=== PATIENT | female | born 1940 | race Caucasian/White ===

== ENCOUNTER 2016-10-29 07:30 | Inpatient (IN) | payer MEDICARE, BC ==
[2016-10-15 09:32] VITALS: BMI 30.1
[~2016-10-29 07:30] MED LIST: ACETAMINOPHEN TAB 500 MG TAB PO ONE; DEXAMETHASONE SOD PHOSPHATE 10 MG/ML 1 ML VIAL IV ONE; HYDROmorphone 1 MG/ML 1 ML SYRINGE IVP PRN; LACTATED RINGERS 1,000 ML IV SCH; MELOXICAM 7.5 MG TAB PO ONE; ONDANSETRON 4 MG/2 ML VIAL IVP ONE; TRANEXAMIC ACID 1,000 MG in SODIUM CHLORIDE 0.9% 100 ML IVPB ONE
[2016-10-29] MEDS ORDERED: LACTATED RINGERS 1,000 ML BAG IV ONE (12:43)
[2016-10-29] MEDS ORDERED: SODIUM CHLORIDE 0.9% 100 ML BAG ONE (12:43)
[2016-10-29] MEDS ORDERED: HEPARIN SODIUM,PORCINE 10,000 UNIT/ML 1 ML VIAL ONE (12:43)
[2016-10-29] MEDS ORDERED: CLINDAMYCIN 150 MG/ML 6 ML VIAL ONE (12:43)
[2016-10-29] MEDS ORDERED: CLINDAMYCIN 150 MG/ML 4 ML VIAL ONE (12:43)
[2016-10-29] MEDS ORDERED: TRANEXAMIC ACID 1,000 MG/10 ML VIAL ONE (12:43)
[2016-10-29] MEDS ORDERED: MIDAZOLAM 2 MG/2 ML VIAL ONE (12:43)
[2016-10-29] MEDS ORDERED: diphenhydrAMINE 50 MG/ML 1 ML VIAL ONE (12:43)
[2016-10-29] MEDS ORDERED: SODIUM CHLORIDE 0.9% IRRIG 1,000 ML BTL IRRIGATION ONE (12:43)
[2016-10-29] MEDS ORDERED: SODIUM CHLORIDE 0.9% IRRIG 3,000 ML BAG IRRIGATION ONE (12:43)
[2016-10-29] MEDS ORDERED: ePHEDrine 50 MG/ML 1 ML AMP ONE (12:43)
[2016-10-29] MEDS ORDERED: PHENYLEPHRINE-0.9% NACL SYG 1 MG/10 ML SYRINGE ONE (12:43)
[2016-10-29] MEDS: CLINDAMYCIN 1,800 MG in SODIUM CHLORIDE 0.9% IRRIGATIO 3,000 ML IRRIGATION ONE ×2 (12:54→18:21)
[2016-10-29] MEDS: CLINDAMYCIN 900 MG in DEXTROSE 5% IN WATER 50 ML IVPB ONE ×4 (12:54→18:20)
[2016-10-29] MEDS: ROPIVACAINE 246.25 MG, EPINEPHrine 0.5 MG, KETOROLAC 30 MG, cloNIDine HCL/PF 80 MCG, WA... MISCELLANE ONE ×10 (13:20→14:55)
[2016-10-29] MEDS: LACTATED RINGERS 1,000 ML IV ONE ×4 (13:54→18:22)
--- NOTE | 2016-10-29 15:47 | P.OP ---
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 Anesthesia: spinal Surgeon: Nakul Rice House Decorator #1: Marlena Hill Estimated Blood Loss (ml): 500 (203 mL returned with Cell Saver) Pathology: none sent Condition: stable Disposition: PACU Indications for Procedure: This is a 75-year-old female has had a prior right total hip arthroplasty in the and [place], [place]. She is done well until recently when she began having more pain in her right hip thigh groin and leg. 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 After discussion of the surgical and nonsurgical treatment options with her at length , she wishes to proceed with a revision of a right total hip arthroplasty. She is aware the potential complications including, but not limited to, infection, bleeding, dislocation, leg length discrepancy, nerve injury, and continued pain. Informed consent was obtained. Operative Findings: The operative findings showed loosening of the femoral component, significant polyethylene wear, and loosening of the acetabular component. Description of Procedure: Patient was seen and evaluated in the preoperative area, consent was reviewed, and the surgical site was marked with a skin marker. Patient was then brought to the operating room and given prophylactic antibiotics intravenously. 1 g of Tranexamic acid was also given. A spinal anesthetic was administered by the anesthesia department. A Guevara catheter was then placed by the nursing staff. The patient was then placed on the operative table and placed in the lateral decubitus position with the bony prominences well-padded. The hip area was then prepped and draped in usual sterile fashion. A universal timeout was then performed, which confirmed the patient's name, surgical site, ALLERGIES, and procedure being performed. Next the incision site was located in the lateral aspect of the hip, centered at the tip of the greater trochanter, with part of the prior incision utilized, with the scar being excised.. The skin and subcutaneous tissues were sharply incised. Incision was carefully dissected down to the fascia. This fascia was then incised in line with the incision. The fascial planes were reestablished. Next , a Charnley retractor was then placed in the abductors were identified. The anterior one third of the abductors was released off the trochanter and one large sleeve. The anterior hip capsule was then exposed. The capsule was then opened. The proximal femur was then visualized. The hip was then gently dislocated. The femoral head was then removed from the femoral stem without incident. Our tissue was then removed from about the proximal femur, so that the femoral component was readily visualized. A saw was then used to remove trochanteric bone in order for the femoral component to clear the trochanter while being removed. Next, curved osteotome was then used to gently remove the femoral component without difficulty. Femoral component was grossly loose. Met was then cleared from the femoral canal. Attention was then directed to the acetabulum. The acetabulum was exposed and any remaining scar was excised. The acetabular liner was removed with an osteotome and a mallet without difficulty. Next, the 2 acetabular screws were then removed with appropriate screwdriver. Next, the acetabulum and bone interface was disrupted using curved osteotomes, and the acetabulum was easily removed with minimal bone loss. The acetabulum was then evaluated and found to have no significant areas of bone loss. Sequential reaming of the acetabulum was performed to a bed of bleeding cancellus bone. When the appropriate size was reached, a trial was then placed. The trial was then removed. Then the final implant was impacted at 20 of anteversion and 40 of abduction, and fully seated in the acetabulum. 3 screws were then placed in the acetabulum. Next, the trial liner was then impacted. Attention was then directed to the femur. The proximal was reexposed. Retractors were then placed. A box osteotome was used to lateralize the proximal femur. A hand marker was then used to locate the femoral canal. Sequential reaming was then performed with appropriate size which afforded excellent fixation in the femur. A trial stem was then placed to the appropriate depth. Adapter was then placed in the proximal femur was reamed to accommodate a size B standard cone proximal body. The trial stem was then removed, the trial stem was then assembled and re-impacted into the femur at the appropriate anteversion and appropriate depth. Trial head was then placed along with the dual mobility insert, and the hip was reduced. The leg lengths were checked and found to be equal. Hip was then taken through full range of motion, was stable throughout. Next, the hip was gently dislocated, and the trials were removed. Final implants were then impacted and the hip was again reduced. The leg lengths were again examined and found to be equal. The hip was also taken through range of motion, and found to be stable. It was noted that there was a fracture of the greater trochanter which occurred during the reaming and trialing process. A cable wire was then placed across the fracture site, which afforded excellent fixation of the fracture. The hip was then copiously irrigated with antibiotic solution with pulsatile lavage. The hip was then irrigated with Irrisept solution. The soft tissues were then injected with ropivacaine solution. A second dose of 1 g of Tranexamic acid was given. The abductors were then repaired with #5 Ethibond suture with drill holes to the bone. The fascia was closed with #2 strata fix suture. The subcutaneous tissue was closed with 3-0 Vicryl. The subcuticular tissue was closed with 30 strata fix suture. The skin was then closed with Dermabond tape. The patient was then transferred to the recovery room in stable condition. The Asst. Marlena Hill was required due to the complexity of surgery, and the need for skilled surgical consultant for positioning, draping, exposure, retraction, and closure of the wound.and closure of the wound.
[2016-10-29] MEDS ORDERED: MAGNESIUM HYDROXIDE 2,400 MG/10 ML CUP PO PRN (15:53)
[2016-10-29] MEDS ORDERED: NALOXONE 0.4 MG/ML 1 ML VIAL IV PRN (15:53)
[2016-10-29] MEDS ORDERED: ONDANSETRON 4 MG/2 ML VIAL IVP PRN (15:53)
[2016-10-29] MEDS ORDERED: hydrOXYzine PAMOATE 25 MG CAP PO PRN (15:53)
[2016-10-29] MEDS ORDERED: DIAZEPAM 5 MG TAB PO PRN ×2 (15:53)
[2016-10-29] MEDS ORDERED: HYDROmorphone 1 MG/ML 1 ML SYRINGE IVP PRN ×3 (15:53)
[2016-10-29] MEDS ORDERED: HYDROcodone/APAP 5-325MG 1 EACH TAB PO PRN (15:53)
--- NOTE | 2016-10-29 16:13 | XR ---
EXAMINATION TYPE: XR Hip Limited RT DATE OF EXAM: 10/29/2016 4:06 PM COMPARISON: NONE HISTORY: Post hip surgery TECHNIQUE: Single AP view right hip FINDINGS: Right hip prosthesis is present. A cerclage wire is present. Acute fractures are not identi fied. IMPRESSION: No acute fractures post hip replacement.
[2016-10-29] MEDS: CLINDAMYCIN 900 MG in DEXTROSE 5% IN WATER 50 ML IVPB SCH ×2 (17:26)
[2016-10-29] MEDS: SODIUM CHLORIDE 0.9% 1,000 ML IV SCH (17:27)
[2016-10-29] MEDS: HYDROcodone/APAP 5-325MG 1 EACH TAB PO PRN (18:45)
[2016-10-29] MEDS: ASPIRIN 325 MG TAB PO SCH (20:53)
[2016-10-29] MEDS: SENNOSIDES-DOCUSATE SODIUM 1 EACH TAB PO SCH (20:54)
[2016-10-29] MEDS: amLODIPine 10 MG TAB PO SCH (23:41)
[2016-10-30] MEDS: CLINDAMYCIN 900 MG in DEXTROSE 5% IN WATER 50 ML IVPB SCH ×2 (06:18)
[2016-10-30] MEDS: SODIUM CHLORIDE 0.9% 1,000 ML IV SCH (07:29)
[2016-10-30] MEDS: HYDROcodone/APAP 5-325MG 1 EACH TAB PO PRN ×3 (07:29→17:41)
[2016-10-30] MEDS ORDERED: PANTOPRAZOLE 40 MG TABLET PO SCH (07:30)
[2016-10-30 07:39] LABS: Basophils % (A) 0 %; CH 28.1; Eosinophils % (A) 0 %; HDW 2.45; Luc # (Auto) 0.07; Luc % (Auto) 1; Lymphocytes # (A) 1.6 k/uL (1.0-4.8); Lymphocytes % (A) 16 %; MCH 28.5 pg (25.0-35.0); MCHC 32.3 g/dL (31.0-37.0); MCV 88.4 fL (80.0-100.0); Monocytes # (A) 0.5 k/uL (0-1.0); Monocytes % (A) 6 %; Neutrophils # (A) 7.7 k/uL (1.3-7.7); Neutrophils % (A) 77 %; RBC 3.16 m/uL (3.80-5.40); WBC 9.9 k/uL (3.8-10.6); WBC (Perox) 9.82
[2016-10-30] MEDS: PANTOPRAZOLE SODIUM 40 MG GRANULE PKT PO SCH (08:34)
[2016-10-30] MEDS: ATORVASTATIN 80 MG TAB PO SCH (08:34)
[2016-10-30] MEDS: FENOFIBRATE 160 MG TAB PO SCH (08:34)
[2016-10-30] MEDS: CHOLECALCIFEROL 1,000 UNIT TAB PO SCH (08:34)
[2016-10-30] MEDS: ASPIRIN 325 MG TAB PO SCH ×2 (08:34→20:16)
[2016-10-30] MEDS: MELOXICAM 7.5 MG TAB PO SCH (08:34)
--- NOTE | 2016-10-30 08:47 | CONS ---
DATE OF CONSULTATION: DATE OF SERVICE: 10/29/2016 REASON FOR CONSULTATION: Advice regarding hypertension, hyperlipidemia requested by Dr. Rice. HISTORY OF PRESENT ILLNESS: This 75-year-old woman with a past medical history of hypertension, hyperlipidemia, DJD, history of GERD, history of hernia surgery, hysterectomy being followed by Dr. Baca in the outpatient setting was admitted after revision total hip joint arthroplasty on the right. No chest pain or palpitations. No fever. Patient is slightly sedated. No hematochezia or melena. PAST MEDICAL HISTORY: History of GERD, hypertension, hyperlipidemia, DJD. Patient uses a cane. Medications are: 1. Norvasc 10 mg q.h.s. 2. Zoloft 50 mg daily. 3. Metamucil 6 grams p.o. daily. 4. Zegerid 20 mg 1 p.o. daily. 5. Niacin 400 mg daily. 6. Multivitamin 1 p.o. daily. 7. Glucosamine 1 tablet p.o. daily. 8. Fenofibrate 160 mg p.o. daily. 9. Vitamin D3, 1000 units daily. 10. Lipitor 80 mg daily. 11. Aspirin 81 mg. 12. Fosamax 70 mg q.7 days. Allergies are PENICILLIN and SULFA. FAMILY HISTORY: History of cancer in the family. SOCIAL HISTORY: Previous history of smoking. No history of alcohol intake. REVIEW OF SYSTEMS: ENT: No diminished hearing or vision. CARDIOVASCULAR SYSTEM: No angina or palpitations. RESPIRATORY SYSTEM: No cough. GI: No nausea. : No dysuria. NERVOUS SYSTEM: No numbness or weakness. ALLERGY/IMMUNOLOGY: No asthma or hayfever. MUSCULOSKELETAL: As mentioned earlier. HEMATOLOGY/ONCOLOGY: No history of anemia. ENDOCRINE: No history of diabetes or hypothyroidism. CONSTITUTIONAL: As mentioned earlier. DERMATOLOGY: Negative. RHEUMATOLOGY: Negative. PSYCHIATRY: As mentioned earlier. PHYSICAL EXAMINATION: The patient is alert and oriented x3. Pulse is 90, blood pressure 109/65, respirations 16, temperature 97.8, pulse ox 98% on room air. HEENT: Conjunctivae normal. Oral mucosa moist. NECK: No jugular venous distention. No carotid bruit. No lymph node enlargement. No thyroid enlargement. CARDIOVASCULAR: S1 and S2, muffled. No S3, no S4. RESPIRATORY: Breath sounds diminished at the bases. No rhonchi, no crackles. ABDOMEN: Soft, nontender. No mass palpable. No hepatosplenomegaly. LEGS: No edema, no swelling. Status post right hip surgery. NERVOUS SYSTEM: Higher function as mentioned. Moves all 4 limbs. No focal motor deficits. LYMPHATICS: No lymphadenopathy of neck, axillae or groin. SKIN: No ulcers, rashes or bleeding. LABS: At this time shows that the labs are not available. The labs done preop the platelets are 482. Otherwise chemistry shows glucose 112, AST 37. ASSESSMENT: 1. Status post revision right total hip joint arthroplasty. 2. History of hypertension. 3. History of hyperlipidemia. 4. History of degenerative joint disease. 5. History of gastroesophageal reflux disease. 6. History of tonsillectomy. 7. History of hysterectomy. 8. History of hernia repair. 9. Remote history of nicotine dependence. 10. FULL CODE. RECOMMENDATIONS AND DISCUSSION: This 75-year-old woman who presented after surgery. At this time, I would recommend to continue current medications. Continue symptomatic treatment. Recommend to resume the home medications, Monitor blood closely. DVT prophylaxis. Incentive spirometry. Will follow the patient closely with you. Otherwise, patient will be asked to follow with Dr. Baca closely after discharge. Thank you Dr. Rice for letting us participate in the care of this patient. JOSEFINA
--- NOTE | 2016-10-30 09:00 | P.PN ---
Subjective Principal diagnosis: Status post right total hip arthroplasty revision This is a pleasant 75-year-old female who is status post right total hip arthroplasty revision. Today's postoperative day #1. The patient is seen and evaluated at bedside with Dr. Nakul Rice. Her pain is recently controlled this time. She has no new complaints at this time. Objective - Vital Signs Vital signs: Vital Signs Temp 98 F 10/30/16 07:33 Pulse 70 10/30/16 07:33 Resp 17 10/30/16 07:33 BP 105/57 10/30/16 07:33 Pulse Ox 96 10/30/16 07:33 Intake & Output 10/29/16 10/30/16 10/30/16 18:59 06:59 18:59 Intake Total 5948 180 Output Total 600 400 Balance 5348 -400 180 Weight 77.111 kg Intake: IV 5468 Oral 480 180 Output: Urine 100 400 Estimated Blood Loss 500 Other: Voiding Method Indwelling Catheter - Exam The patient does not appear in acute distress. Alert and orientated 3. Dressing is clean dry and intact. Incision appears fine with no erythema or active drainage. Calf is soft and nontender. Good foot and ankle motion without difficulty. Sensation and circulatory status is intact. - Labs CBC & Chem 7: 10/30/16 07:02 Labs: Abnormal Lab Results - Last 24 Hours (Table) 10/30/16 Range/Units 07:02 RBC 3.16 L (3.80-5.40) m/uL Hgb 9.0 L D (11.4-16.0) gm/dL Hct 28.0 L (34.0-46.0) % Assessment and Plan (1) Status post revision of total hip replacement Status: Acute (2) Hardware failure Status: Acute Plan: Continue with routine postoperative care. Physical therapy and anticoagulation. Continue pain control. Appreciate input from medicine. Plan for transfer to [facility] likely on Friday.
[2016-10-30] MEDS: SERTRALINE 50 MG TAB PO SCH (12:15)
[2016-10-30] MEDS: amLODIPine 10 MG TAB PO SCH (20:16)
[2016-10-30] MEDS: SENNOSIDES-DOCUSATE SODIUM 1 EACH TAB PO SCH (20:18)
[2016-10-31] MEDS: HYDROcodone/APAP 5-325MG 1 EACH TAB PO PRN ×4 (01:26→21:16)
[2016-10-31 07:21] LABS: Basophils # (A) 0.1 k/uL (0-0.2); Basophils % (A) 1 %; CH 28.6; CHCM 32.6; Eosinophils # (A) 0.2 k/uL (0-0.7); Eosinophils % (A) 3 %; HDW 2.49; HGB 9.1 gm/dL (11.4-16.0); Luc # (Auto) 0.07; Luc % (Auto) 1; Lymphocytes # (A) 1.1 k/uL (1.0-4.8); Lymphocytes % (A) 16 %; MCH 27.8 pg (25.0-35.0); MCHC 31.5 g/dL (31.0-37.0); MCV 88.3 fL (80.0-100.0); Mean Platelet Volume 7.3; Monocytes # (A) 0.5 k/uL (0-1.0); Monocytes % (A) 7 %; Neutrophils # (A) 5.1 k/uL (1.3-7.7); Neutrophils % (A) 73 %; RBC 3.28 m/uL (3.80-5.40); RDW 14.5 % (11.5-15.5); WBC (Perox) 7.53
[2016-10-31] MEDS: MELOXICAM 7.5 MG TAB PO SCH (07:22)
[2016-10-31] MEDS: FENOFIBRATE 160 MG TAB PO SCH (07:23)
[2016-10-31] MEDS: ATORVASTATIN 80 MG TAB PO SCH (07:23)
[2016-10-31] MEDS: CHOLECALCIFEROL 1,000 UNIT TAB PO SCH (07:23)
[2016-10-31] MEDS: SERTRALINE 50 MG TAB PO SCH (07:23)
[2016-10-31] MEDS: ASPIRIN 325 MG TAB PO SCH ×2 (07:23→21:13)
[2016-10-31] MEDS: PANTOPRAZOLE SODIUM 40 MG GRANULE PKT PO SCH (07:24)
--- NOTE | 2016-10-31 08:32 | PN ---
DATE OF SERVICE: 10/30/2016 This 75-year-old woman who was admitted after right total hip arthroplasty is improving significantly. No chest pain or palpitations. No fever. On exam, alert and oriented x3. Pulse is 72, blood pressure 105/58, respirations 16, temperature 98 degrees, pulse ox 96% on room air. HEENT: Conjunctivae normal. NECK: No jugular venous distention. CARDIOVASCULAR: S1 and S2, muffled. RESPIRATORY: Breath sounds diminished at the bases. No rhonchi, no crackles. ABDOMEN: Soft, nontender. LEGS: Status post surgery. NERVOUS SYSTEM: No focal deficits. LABS: Hemoglobin 9. ASSESSMENT: 1. Status post revision right total hip joint arthroplasty. 2. Anemia, postoperative as expected, dilutional. 3. Hypertension. 4. Hyperlipidemia. 5. History of degenerative joint disease. 6. History of gastroesophageal reflux disease. 7. History of tonsillectomy. 8. History of hysterectomy. 9. History of hernia repair. 10. Remote history of nicotine dependence. 11. FULL CODE. RECOMMENDATIONS AND DISCUSSION: Recommend to continue current medications. Continue with monitoring and symptomatic treatment. Otherwise, DVT prophylaxis. I would recommend repeat CBC also. Otherwise, monitor closely. Further recommendations to follow.
--- NOTE | 2016-10-31 08:47 | P.PN ---
Subjective Principal diagnosis: Revision right total hip arthroplasty This is a 75 year-old female post revision right total hip arthroplasty. This is post-op day 2. The patient was evaluated at the bedside today. The patient denies nausea, vomiting, abdominal pain, shortness of breath, and chest pain this morning. She states her pain is controlled at this time. The patient states she has ambulated to the bathroom. Objective - Vital Signs Vital signs: Vital Signs Temp 98.3 F 10/31/16 07:45 Pulse 92 10/31/16 07:45 Resp 16 10/31/16 07:45 BP 117/58 10/31/16 07:45 Pulse Ox 96 10/31/16 07:45 Intake & Output 10/30/16 10/31/16 10/31/16 18:59 06:59 18:59 Intake Total 1020 1000 Output Total 1300 Balance -280 1000 Intake: Oral 1020 1000 Output: Urine 1300 Uretheral (Guevara) 1300 Other: Voiding Method Toilet # Voids 2 - Exam The patient does not appear in acute distress. Alert and orientated x3. Dressing is clean dry and intact. Incision appears fine with no erythema or active drainage. Calf is soft and nontender. Good foot and ankle motion without difficulty. Sensation and circulatory status is intact. - Labs CBC & Chem 7: 10/31/16 06:31 Labs: Abnormal Lab Results - Last 24 Hours (Table) 10/31/16 Range/Units 06:31 RBC 3.28 L (3.80-5.40) m/uL Hgb 9.1 L (11.4-16.0) gm/dL Hct 29.0 L (34.0-46.0) % Assessment and Plan (1) Hardware failure Status: Acute (2) Status post revision of total hip replacement Status: Acute Plan: 1. Continue pain control 2. Anticoagulation with Aspirin 3. Continue physical therapy and ambulation 4. Anticipate discharge to skilled rehab tomorrow
--- NOTE | 2016-10-31 15:29 | PN ---
DATE OF SERVICE: 10/31/2016 This is a 75-year-old woman who was admitted after right total knee arthroplasty, is improving significantly. No chest pain or palpitation. No fever. On exam, alert and oriented x3. Pulse is 92, blood pressure 117/58, respirations 16, temperature is 98.1, pulse ox 97% on room air. HEENT: Conjunctivae normal. NECK: No jugular venous distension. CARDIOVASCULAR SYSTEM: S1, S2, muffled. RESPIRATORY: Breath sounds diminished at the bases. No rhonchi, no crackles. Abdomen is soft, nontender. EXTREMITIES: Legs status post right knee arthroplasty. NERVOUS SYSTEM: No focal deficits. LABS: Hemoglobin 9.1. ASSESSMENT: 1. Status post revision of total knee joint arthroplasty. 2. Anemia, postoperative as expected stable, dilutional, stable. 3. Hypertension. 4. Hyperlipidemia. 5. History of degenerative joint disease. 6. History of gastroesophageal reflux disease. 7. History of tonsillectomy. 8. History of hysterectomy. 9. History of hernia repair. 10. Remote history of nicotine dependence. 11. FULL CODE. RECOMMENDATION: Recommend to continue with the monitoring and symptomatic treatment. I recommend DVT prophylaxis and incentive spirometry. Closely follow. Further recommendations to follow.
[2016-10-31] MEDS: amLODIPine 10 MG TAB PO SCH (21:13)
[2016-10-31] MEDS: SENNOSIDES-DOCUSATE SODIUM 1 EACH TAB PO SCH (21:13)
[2016-11-01 01:37] VITALS: RESP 16
[2016-11-01] MEDS: HYDROcodone/APAP 5-325MG 1 EACH TAB PO PRN ×2 (06:52→14:05)
[2016-11-01 07:12] LABS: Basophils % (A) 0 %; CH 28.6; CHCM 32.1; Eosinophils # (A) 0.1 k/uL (0-0.7); Eosinophils % (A) 2 %; HCT 28.9 % (34.0-46.0); HDW 2.42; HGB 9.1 gm/dL (11.4-16.0); Luc % (Auto) 2; Lymphocytes # (A) 1.1 k/uL (1.0-4.8); Lymphocytes % (A) 18 %; MCH 28.3 pg (25.0-35.0); MCHC 31.6 g/dL (31.0-37.0); MCV 89.5 fL (80.0-100.0); Mean Platelet Volume 7.3; Monocytes # (A) 0.5 k/uL (0-1.0); Monocytes % (A) 7 %; Neutrophils # (A) 4.5 k/uL (1.3-7.7); Neutrophils % (A) 71 %; RBC 3.23 m/uL (3.80-5.40); RDW 14.2 % (11.5-15.5); WBC 6.3 k/uL (3.8-10.6); WBC (Perox) 7.19
[2016-11-01 07:28] VITALS: BP 117/69; PULSE 95; TEMP 98.5
[2016-11-01] MEDS: MELOXICAM 7.5 MG TAB PO SCH (09:04)
[2016-11-01] MEDS: FENOFIBRATE 160 MG TAB PO SCH (09:05)
[2016-11-01] MEDS: ATORVASTATIN 80 MG TAB PO SCH (09:05)
[2016-11-01] MEDS: PANTOPRAZOLE SODIUM 40 MG GRANULE PKT PO SCH (09:05)
[2016-11-01] MEDS: SERTRALINE 50 MG TAB PO SCH (09:05)
[2016-11-01] MEDS: ASPIRIN 325 MG TAB PO SCH (09:05)
--- NOTE | 2016-11-01 09:51 | P.DS ---
Providers Date of admission: 10/29/16 11:29 Expected date of discharge: 11/01/16 Attending physician: Nakul Rice Consults: 10/29/16 15:53 Consult Physician Routine Consulting Provider: Sriram Chaudhari Consult Reason/Comments: medical management Do you want consulting provider notified?: Yes Primary care physician: Nakul Baca - Discharge Diagnosis(es) (1) Status post revision of total hip replacement Current Visit: Yes Status: Acute (2) Hardware failure Current Visit: Yes Status: Acute Hospital Course: This is a 75-year-old female with history of right total hip arthroplasty. She recently had worsening pain in the right thigh and hip. X-rays demonstrated osteolysis and loosening of the components. After discussion and consideration the patient elected to proceed with revision of her total hip arthroplasty. The patient underwent the procedure on 10/29/2016. The procedure was performed without complications or sequelae. The patient has done well postoperatively. The patient is seen and evaluated at bedside today. Her vital signs are stable. She is alert and orientated 3. She has no new complaints this time. Her pain is reasonably controlled. She denies shortness of breath, chest pain, lightheadedness. She is passing gas but has not yet had a bowel movement. She was given a laxative this morning. Incision looks fine with no erythema or active drainage. Calf is soft and nontender. She has sustained dorsiflexion plantar flexion extensor hallux longus. Sensation and circulatory status is intact. The patient is orthopedically stable for transfer to rehab today if she is cleared medically. Pertinent Studies: Laboratory Tests 11/01/16 06:40 WBC 6.3 RBC 3.23 L Hgb 9.1 L Hct 28.9 L MCV 89.5 Patient Condition at Discharge: Good Plan - Discharge Summary New Discharge Prescriptions: Aspirin 325 mg PO BID #60 tab Hydrocodone/Acetaminophen [[place] 5-325] 1 - 2 each PO Q6HR PRN #90 tab PRN Reason: Pain Sennosides-Docusate Sodium [Senokot-S] 2 tab PO DAILY #60 tablet Discharge Medication List Alendronate Sodium [Fosamax] 70 mg PO Q7D 10/15/16 [History] Aspirin [Adult Low Dose Aspirin EC] 81 mg PO DAILY 10/15/16 [History] Atorvastatin [Lipitor] 80 mg PO DAILY 10/15/16 [History] Cholecalciferol [Vitamin D3] 1,000 unit PO DAILY 10/15/16 [History] Fenofibrate 160 mg PO DAILY 10/15/16 [History] Gluc/[place]-MSM#1/C/Kwan/Uri/Bor [Glucosamine-Chondroitin Tablet] 1 tab PO DAILY 10/15/16 [History] Multivitamin/Iron/Folic Acid [Centrum Complete Multivit Tab] 1 tab PO DAILY [History] Niacin (Inositol Niacinate) [Niacin Flush Free 500 mg Cap] 400 mg PO DAILY 10/15 [History] Omeprazole/Sodium Bicarbonate [Zegerid 20 mg Capsule] 1 cap PO DAILY 10/15/16 [ History] Psyllium Husk (with Sugar) [Metamucil Powder] 6 gm PO DAILY 10/15/16 [History] Sertraline [Zoloft] 50 mg PO DAILY 10/15/16 [History] amLODIPine BESYLATE [Norvasc] 10 mg PO HS 10/15/16 [History] Aspirin 325 mg PO BID #60 tab 11/01/16 [Rx] Hydrocodone/Acetaminophen [[place] 5-325] 1 - 2 each PO Q6HR PRN #90 tab 11/01/16 [Rx] Sennosides-Docusate Sodium [Senokot-S] 2 tab PO DAILY #60 tablet 11/01/16 [Rx] Follow up Appointment(s)/Referral(s): Nakul Rice DO [Doctor of Osteopathic Medicine] - 2 Weeks Activity/Diet/Wound Care/Special Instructions: Weightbearing as tolerated with walker Follow hip precautions and use abductor pillow as instructed Daily dressing changes Keep incision clean and dry [facility] with questions or concerns [phone] Discharge Disposition: TRANSFER TO SNF/F
[2016-11-01] MEDS: CHOLECALCIFEROL 1,000 UNIT TAB PO SCH (14:06)
--- NOTE | 2016-11-01 16:21 | PN ---
DATE OF SERVICE: 11/01/2016 This 75-year-old woman was admitted with right total knee arthroplasty, improved significantly. No chest pain, no palpitations. No fever. ECF rehab is recommended. On exam, alert and oriented x3. Pulse 97, blood pressure 130/59, respirations 16, temperature 98.7, pulse ox 97% on room air. HEENT: Conjunctivae normal. NECK: No jugular venous distention. CARDIOVASCULAR: S1 and S2, muffled. RESPIRATORY: Breath sounds diminished at the bases. No rhonchi, no crackles. ABDOMEN: Soft. LEGS: Status post surgery. NERVOUS SYSTEM: No focal deficits. LABS: Hemoglobin 9.1. ASSESSMENT: 1. Status post revision total knee arthroplasty. 2. Anemia, postoperative, expected, stable, dilutional. 3. Hypertension. 4. Hyperlipidemia. 5. History of degenerative joint disease. 6. History of gastroesophageal reflux disease. 7. History of tonsillectomy. 8. History of hysterectomy. 9. History of hernia repair. 10. Remote history of nicotine dependence. 11. FULL CODE. RECOMMENDATIONS AND DISCUSSION: In this 75-year-old woman who presented with multiple complex medical issues, will monitor the patient closely. Continue the current medications, continue symptomatic treatment. Otherwise at this time I recommend resume the home medications. Follow with Dr. Jamel Carroll in the ECF and continue to monitor. The rest of the recommendations per Orthopedic Surgery. DVT prophylaxis. Further recommendations to follow.
== END 2016-11-01 16:09 | DRG 468 ==
LOC: 2ORMAIN 11:29 → 3SUR 16:26
PROVIDERS: ADMIT Orthopaedic Surgery; ATTEND Orthopaedic Surgery
PROC: 0SP909Z Removal of Liner from Right Hip Joint, Open Approach (ICD-10-PCS; 2016-10-29)
PROC: 0SUA09Z Supplement Right Hip Joint, Acetabular Surface with Liner, Open Approach (ICD-10-PCS; 2016-10-29)
PROC: 0SP90JZ Removal of Synthetic Substitute from Right Hip Joint, Open Approach (ICD-10-PCS; 2016-10-29)
PROC: 0SR902A Replacement of Right Hip Joint with Metal on Polyethylene Synthetic Substitute, Uncemented, Open Approach (ICD-10-PCS; principal; 2016-10-29 14:00)
DX: T84.030A Mechanical loosening of internal right hip prosthetic joint, initial encounter (principal); T84.060A Wear of articular bearing surface of internal prosthetic right hip joint, initial encounter; D64.89 Other specified anemias; E78.5 Hyperlipidemia, unspecified; I10 Essential (primary) hypertension; K21.9 Gastro-esophageal reflux disease without esophagitis; M19.90 Unspecified osteoarthritis, unspecified site; Z87.891 Personal history of nicotine dependence; Z96.651 Presence of right artificial knee joint; Z88.0 Allergy status to penicillin; Z88.2 Allergy status to sulfonamides; Z79.82 Long term (current) use of aspirin; Z79.899 Other long term (current) drug therapy; Z82.49 Family history of ischemic heart disease and other diseases of the circulatory system; Y79.2 Prosthetic and other implants, materials and accessory orthopedic devices associated with adverse incidents
CPT/HCPCS: 73501; 85025; 86850; 86891; 86900; 86901

== ENCOUNTER → 2017-03-28 | Outpatient (CLI) | payer MEDICARE, BC ==
--- NOTE | 2017-03-28 10:21 | US ---
EXAMINATION TYPE: US abdomen limited DATE OF EXAM: 03/28/2017 COMPARISON: NONE CLINICAL HISTORY: Abn MRI of liver R93.2. EXAM MEASUREMENTS: Liver Length: 14.5 cm Gallbladder Wall: 0.8 cm CBD: 0.9 cm Right Kidney: 12.8 x 4.0 x 5.0 cm Extensive midline bowel gas Pancreas: Obscured by bowel gas Liver: Partially obscured by bowel gas, unable to visualize any mass in liver Gallbladder: irregular thickened wall, debris within Evidence for sonographic Martinez's sign: No CBD: dilated Right Kidney: multiple cysts noted largest measuring 2.0 x 1.1 x 2.3cm The pancreas is obscured. The liver is normal in size without biliary dilatation Or multiple sclerosis gallstones within the gallbladder. The gallbladder wall is thickened measuring 8 mm. The castillo irregular. This common hepatic duct measures 9 mm. There are multiple cortical and parapelvic cysts. These all appear simply cystic. IMPRESSION: 1. CHOLELITHIASIS. 2. THICKENED AND IRREGULAR GALLBLADDER WALL IS SUSPICIOUS FOR CARCINOMA. 3. PARAPELVIC ANKLE CORTICAL CYSTS INVOLVING THE RIGHT KIDNEY.
== END | disposition home or self-care (01) ==
LOC: RADUSWWP 09:00
PROVIDERS: ATTEND Family Medicine
DX: K80.20 Calculus of gallbladder without cholecystitis without obstruction (principal); K82.8 Other specified diseases of gallbladder
CPT/HCPCS: 76705

== ENCOUNTER → 2017-06-04 | Outpatient (CLI) | payer MEDICARE, BC ==
--- NOTE | 2017-06-05 10:59 | MM ---
Reason for exam: screening (asymptomatic). Last mammogram was performed 1 year and 1 month ago. History: Patient is postmenopausal and has history of other cancer at age 72. Took estrogen for 17 years beginning at age 55. Physical Findings: A clinical breast exam by your physician is recommended on an annual basis and results should be correlated with mammographic findings. MG 3D Screening Mammo W/Cad Bilateral CC and MLO view(s) were taken. Prior study comparison: May 06, 2016, bilateral MG 3d screening mammo w/cad. April 24, 2015, bilateral MG screening mammo w CAD. April 19, 2014, bilateral MG screening mammo w CAD. There are scattered fibroglandular densities. There is chronic nodularity bilaterally. There is no dominant lesion. ASSESSMENT: Benign, BI-RAD 2 RECOMMENDATION: Routine screening mammogram of both breasts in 1 year.
== END | disposition home or self-care (01) ==
LOC: RADMAMWWP 11:11
PROVIDERS: ATTEND Family Medicine
DX: Z12.31 Encounter for screening mammogram for malignant neoplasm of breast (principal)
CPT/HCPCS: 77063; G0202

== ENCOUNTER → 2018-02-23 | Outpatient (CLI) | payer MEDICARE, BC ==
--- NOTE | 2018-02-24 08:54 | BD ---
EXAMINATION TYPE: MG DEXA axial skeleton. DATE OF EXAM: 02/23/2018 COMPARISON: 04/24/2015 DEXA bone scan. CLINICAL HISTORY: Osteoporosis per order. Height: 63.5 IN Weight: 170 LBS FRAX RISK QUESTIONS: Alcohol (3 or more units per day): NO Family History (Parent hip fracture): NO Glucocorticoids (More than 3mos): NO (Ex: prednisone, prednisolone, methylprednisolone, dexamethasone, and hydrocortisone). History of Fracture in Adulthood: NO Secondary Osteoporosis: 1. Type 1 Diabetes: NO 2. Hyperthyroidism: NO 3. Menopause before 45: YES AGE 38 4. Malnutrition: NO 5. Chronic liver disease: NO Rheumatoid Arthritis: NO Current Tobacco Use: NO RISK FACTORS HISTORY OF: Surgery to Hip(right): YES When: 1996 AND 2016 Active: YES Postmenopausal woman: AGE 38 PARTIAL HYSTERECTOMY MEDICATIONS: Additional Medications: CALCIUM, VIT D, ZOLOFT, CHOLESTEROL MEDS, BLOOD PRESSURE MEDS, EXAM MEASUREMENTS: Bone mineral densitometry was performed using the [employer] System. Bone mineral density as measured about the Lumbar spine is: ----- L1-L4(G/cm2): 1.599 T Score Values are as follows: ----- L2: 4.1 ----- L3: 3.7 ----- L4: 3.6 ----- L1-L4: 3.5 Bone mineral density has: Increased 1.7% since study of: 04/24/2015 Bone mineral density about the L hip (g/cm2): 0.919 T Score values are as follows: -----L Neck: -0.9 -----L Total: 0.5 Bone mineral density has: Decreased -6.7% since study of: 04/24/2015 IMPRESSION: Normal (Values between +1 and -1 indicate normal bone mass). Consider repeating this study in 5 year s or sooner if there is some new clinical indication. Bone density remains normal range. NOTE: T-SCORE=SD OF THE YOUNG ADULT MEAN.
== END | disposition home or self-care (01) ==
LOC: RADBDWWP 15:59
PROVIDERS: ATTEND Family Medicine
DX: Q78.2 Osteopetrosis (principal)
CPT/HCPCS: 77080

== ENCOUNTER → 2018-06-02 | Outpatient (CLI) | payer MEDICARE, BC ==
--- NOTE | 2018-06-03 14:40 | MM ---
Reason for exam: screening (asymptomatic). Last mammogram was performed 1 year ago. History: Patient is postmenopausal and has history of other cancer at age 72. Took estrogen for 17 years beginning at age 55. Physical Findings: A clinical breast exam by your physician is recommended on an annual basis and results should be correlated with mammographic findings. MG 3D Screening Mammo W/Cad Bilateral CC and MLO view(s) were taken. Prior study comparison: June 04, 2017, bilateral MG 3d screening mammo w/cad. May 06, 2016, bilateral MG 3d screening mammo w/cad. There are scattered fibroglandular densities. Finding: There are typically benign dystrophic, round calcifications in both breasts. There is a group of indeterminate calcifications in the right breast middle depth outer aspect. Increase in number of calcifications since June 04, 2017 and May 06, 2016. ASSESSMENT: Incomplete: need additional imaging evaluation, BI-RAD 0 RECOMMENDATION: Special view mammogram of the right breast. [facility] will attempt to contact patient to return for supplemental views.
== END | disposition home or self-care (01) ==
LOC: RADMAMWWP 13:50
PROVIDERS: ATTEND Family Medicine
DX: Z12.31 Encounter for screening mammogram for malignant neoplasm of breast (principal)
CPT/HCPCS: 77063; 77067

== ENCOUNTER → 2018-06-18 | Outpatient (CLI) | payer MEDICARE, BC ==
--- NOTE | 2018-06-18 12:09 | MM ---
Reason for exam: additional evaluation requested from abnormal screening. Last mammogram was performed 1 month ago. History: Patient is postmenopausal and has history of other cancer at age 72. Took estrogen for 17 years beginning at age 55. Physical Findings: Nurse did not find any significant physical abnormalities on exam. MG Work Up Mamm w CAD RT CC and MLO view(s) were taken of the right breast. Prior study comparison: June 02, 2018, bilateral MG 3d screening mammo w/cad. June 04, 2017, bilateral MG 3d screening mammo w/cad. There are scattered fibroglandular densities. Finding: There are coarse, grouped/clustered calcifications in the 10 o'clock upper outer quadrant, middle position of the right breast. These results were verbally communicated with the patient and result sheet given to the patient on 06/18/18. ASSESSMENT: Probably benign, BI-RAD 3 RECOMMENDATION: Follow-up diagnostic mammogram of the right breast in 6 months.
== END | disposition home or self-care (01) ==
LOC: RADMAMWWP 09:42
PROVIDERS: ATTEND Family Medicine
DX: R92.8 Other abnormal and inconclusive findings on diagnostic imaging of breast (principal)
CPT/HCPCS: 77061; 77065